=== PATIENT | female | born 1980 | race Caucasian/White ===

== ENCOUNTER 2017-10-10 15:22 | Emergency (ER) | payer OTHER ==
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
[2017-10-10 17:30] VITALS: BP 123/79
--- NOTE | 2017-10-10 17:31 | CT ---
CT facial bones Technique: Multiple axial sections through the facial bones were obtained. Reconstructed coronal and sagittal images were reviewed. Findings: Slightly comminuted and displaced fracture is noted within the lateral orbital wall on the right side. Greatest displacement is up to 2.4 mm. There is inward displacement of several small fractures by about 2 mm into the orbit. No additional fracture is seen within the facial bones. Mild mucosal thickening is seen within both maxillary sinuses. Soft tissue swelling is seen around the right periorbital region. Impression: 1. Slightly displaced fracture within the lateral orbital wall on the right side. 2. Soft tissue swelling within the right periorbital region. 3. Minimal sinus findings which are felt to be pre-existing and chronic. Diagnostic code #3
== END 2017-10-10 18:10 | disposition home or self-care (01) ==
LOC: JD.ED 15:22
DX: S02.81XA Fracture of other specified skull and facial bones, right side, initial encounter for closed fracture (principal); S70.12XA Contusion of left thigh, initial encounter; S70.11XA Contusion of right thigh, initial encounter; S05.11XA Contusion of eyeball and orbital tissues, right eye, initial encounter; S30.810A Abrasion of lower back and pelvis, initial encounter; F32.9 Major depressive disorder, single episode, unspecified; Z91.040 Latex allergy status; Z79.899 Other long term (current) drug therapy; V49.9XXA Car occupant (driver) (passenger) injured in unspecified traffic accident, initial encounter
CPT/HCPCS: 36415; 70486; 70486-26; 81003; 84703; 85025; 99284-25

== ENCOUNTER 2021-03-18 00:41 | Emergency (ER) | payer OTHER ==
[2021-03-18 00:59] VITALS: BP 95/49; PULSE 72
[2021-03-18] MEDS ORDERED: Ondansetron 4 MG/2 ML SDV IVPUSH ONE (02:13)
[2021-03-18] MEDS ORDERED: HYDROmorphone 1 MG/ML Syringe IVPUSH ONE (02:13)
[2021-03-18] MEDS ORDERED: Ondansetron 4 MG Tab.DIS PO ONE (02:22)
[2021-03-18] MEDS ORDERED: HYDROmorphone 1 MG/ML Syringe IM STA (02:22)
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
--- NOTE | 2021-03-18 08:12 | CR ---
Right ankle: 4 views of the right ankle were obtained. Comparison: No prior studies available Fracture is identified within the distal fibular diaphysis. Mild displacement is seen. Fracture is noted within the medial malleolus showing displacement. No definite posterior malleolus fracture is noted. There is some shifting of the talus in relation to the tibia compatible with mild subluxation with ligamentous injury. Diffuse soft tissue swelling is noted. Impression: 1. Distal fibular diaphyseal fracture and medial malleolus fracture with displacement and mild subluxation at the tibiotalar joint. 2. Soft tissue swelling. Diagnostic code #3
== END 2021-03-18 03:16 | disposition home or self-care (01) ==
LOC: JD.ED 00:41
DX: S82.841A Displaced bimalleolar fracture of right lower leg, initial encounter for closed fracture (principal); Z91.040 Latex allergy status; Z91.048 Other nonmedicinal substance allergy status; X58.XXXA Exposure to other specified factors, initial encounter; Y93.41 Activity, dancing; Y92.89 Other specified places as the place of occurrence of the external cause
CPT/HCPCS: 29515; 73600; 73610; 96372; 99283; A9270; J1170

== ENCOUNTER 2021-03-26 10:26 | Day surgery (SDC) | payer OTHER ==
--- NOTE | 2021-03-26 08:52 | PCM.SN.2 ---
- Free Text/Narrative Note: Anesthesia Note: Time out: 1332 Start: 1332 Stop: 1339 Procedure: Right Ankle Block for post operative pain control requested by Dr. Edwards. Chart reviewed, allergies noted, risk/benefits discussed with patient, and consent obtained. Patient placed on O2 at 2lpm nasal cannula. Monitors/alarms on, and patient positioned supine for ankle block placement. IV sedation given with versed 2mg, and fentanyl 100mcg prior to procedure. Total of 10mls: 50/50 mixture of (1%lidocaine/0.25% marcaine) Deep peroneal nerve, superficial peroneal, saphenous nerve, posterior tibial, and sural nerve all blocked with negative aspiration noted with each injection. Patient tolerated procedure well. Patient stated prior to going back to the OR that ankle pain was improving. Thank you! Nichole Stahl CRNA Time Documentation
--- NOTE | 2021-03-26 08:56 | PCM.SN.2 ---
- Free Text/Narrative Note: Right selective femoral nerve block at the adductor canal for post-procedure pain control under US guidance requested by Dr. Edwards. Time Out: 1320 Start: 1320 End: 1327 Chart reviewed. Consent signed. Questions answered. Appropriate monitors applied. Time out performed. Right mid-shaft femur identified with ultrasound, scanning medially of femur, the femoral artery in the adductor canal visualized, and the femoral nerve located laterally to the artery. The skin was prepped lateral to the ultrasound probe with chlorahexadine times two. The 21ga 4 insulated block needle was inserted under direct ultrasound guidance into the adductor canal. 20mL of 0.5% ropivacaine with 1:200,000 epinephrine was injected circumferentially around the nerve with intermittent negative aspiration noted. Patient tolerated the procedure well. Sterile technique noted along with sterile gloves, mask, and sterile probe cover. See picture on progress note and vital signs on nurses notes. Block completed in PACU. Nichole Stahl CRNA Time Documentation
[~2021-03-26 10:26] MED LIST: Bupivacaine 0.25% 10 ML SDV ONE; EPINEPHrine 1 MG/ML SDV ONE; Lactated Ringers 1,000 ML IV SCH; Lidocaine 1% 30 ML SDV ONE; Lidocaine 1%/Sod Bicarbonate in NS 8.4% 1 ML Syringe IDERM PRN; Ropivacaine 0.5% 5 MG/ML 30 ML SDV ONE; Sodium Chloride 0.9% 10 ML Syringe FLUSH PRN
[2021-03-26] MEDS ORDERED: Dexamethasone 4 MG/ML 5 ML MDV ONE (12:14)
[2021-03-26] MEDS ORDERED: Midazolam 1 MG/ML 2 ML SDV ONE ×2 (12:14→13:53)
[2021-03-26] MEDS ORDERED: Lactated Ringers 1,000 ML ONE (12:14)
[2021-03-26] MEDS ORDERED: Ondansetron 4 MG/2 ML SDV ONE (12:14)
[2021-03-26] MEDS ORDERED: fentaNYL 250 MCG/5 ML SDV ONE (12:15)
[2021-03-26] MEDS ORDERED: ceFAZolin 1 GM Vial ONE (12:15)
[2021-03-26] MEDS ORDERED: Propofol 200 MG/20 ML SDV ONE ×3 (12:15→13:55)
--- NOTE | 2021-03-26 12:57 | PCM.PREANE ---
Preanesthetic Assessment - Procedure Proposed Procedure: ORIF of Right Bimalleolar Ankle Fracture. - Anesthesia/Transfusion/Family Hx Anesthesia History: Prior Anesthesia Without Reaction Family History of Anesthesia Reaction: No Transfusion History: No Prior Transfusion(s) Intubation History: Unknown - Review of Systems General: No Symptoms Pulmonary: No Symptoms (ETOH: 5 beers per week.) Cardiovascular: No Symptoms Gastrointestinal: No Symptoms, Constipation (chronic) Neurological: No Symptoms Other: Reports: Liver Problems (elevated liver enzymes), Depression, Anxiety - Physical Assessment NPO Status Date: 03/25/21 NPO Status Time: 21:00 Vital Signs: Last Vital Signs Temp 36.9 C 03/26/21 10:30 Pulse 70 03/26/21 10:30 Resp 16 03/26/21 10:30 BP 121/76 03/26/21 10:30 Pulse Ox 96 03/26/21 10:30 Height: 1.63 m Weight: 79.2 kg ASA Class: 2 Mental Status: Alert & Oriented x3 Airway Class: Mallampati = 2 Dentition: Reports: Normal Dentition, Caries Thyro-Mental Finger Breadths: 3 Mouth Opening Finger Breadths: 3 ROM/Head Extension: Full Lungs: Clear to Auscultation, Normal Respiratory Effort Cardiovascular: Regular Rate, Regular Rhythm, No Murmurs - Lab Values: All labs reviewed and noted and within acceptable ranges to proceed with scheduled procedure. Declined HCG due to currently menstruating. - Allergies Allergies/Adverse Reactions: Allergies Allergy/AdvReac Type Severity Reaction Status Date / Time latex Allergy Severe Anaphylactic Verified 03/26/21 12:34 Shock adhesive Allergy Rash Verified 03/26/21 12:34 - Anesthesia Plan Pre-Op Medication Ordered: None, Other (Versed 2mg and Fentanyl 100mcg IV in preop for block placement.) - Acknowledgements Anesthesia Type Planned: General Anesthesia (With Right Ankle Block and Right Adductor Canal Block under US guidance for post operative pain control requested by Dr. Edwards. 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 D&C 2011 Neurological History: Reports: None Psychiatric History: Reports: Anxiety, Depression Endocrine/Metabolic History: Reports: Vitamin D Deficiency Hematologic History: Reports: None Immunologic History: Reports: None Oncologic (Cancer) History: Reports: None Dermatologic History: Reports: None - Infectious Disease History Infectious Disease History: Reports: None - Past Surgical History Head Surgeries/Procedures: Reports: None HEENT Surgical History: Reports: LASIK, Other (See Below) Other HEENT Surgeries/Procedures: Orbital fracture Cardiovascular Surgical History: Reports: None Respiratory Surgical History: Reports: None GI Surgical History: Reports: Hernia, Inguinal Other GI Surgeries/Procedures: 1981 Female Surgical History: Reports: Section, D&C Male Surgical History: Reports: None Endocrine Surgical History: Reports: None Neurological Surgical History: Reports: None Musculoskeletal Surgical History: Reports: Arthroscopic Knee, ORIF Other Musculoskeletal Surgeries/Procedures:: ankle surgery Oncologic Surgical History: Reports: None Dermatological Surgical History: Reports: None - SUBSTANCE USE Tobacco Use Status *Q: Never Tobacco User Recreational Drug Use History: No - HOME MEDS Home Medications: Home Meds Citalopram Hydrobromide [Celexa] 40 mg PO DAILY 03/24/21 [History] Aspirin [Aspirin EC] 325 mg PO BID #84 tab 03/26/21 [Rx] Hydrocodone/Acetaminophen [HYDROcodone-Acetaminophen 5-325 MG] 1 - 2 each PO Q4H PRN #30 tablet 03/26/21 [Rx] - CURRENT (IN HOUSE) MEDS Current Meds: Current Medications Lactated Ringer's (Ringers, Lactated) 1,000 mls @ 125 mls/hr IV ASDIRECTED KYRIE Stop: 03/26/21 23:00 Last Admin: 03/26/21 12:34 Dose: 125 mls/hr Documented by: Lidocaine/Sodium Bicarbonate (Lidocaine 1%/Sod Bicarbonate In Ns 8.4% 1 Ml Syringe) 0.25 ml IDERM ONETIME PRN PRN Reason: Prior to IV Start Stop: 03/26/21 18:00 Sodium Chloride (Sodium Chloride 0.9% 10 Ml Syringe) 10 ml FLUSH ASDIRECTED PRN PRN Reason: Keep Vein Open Stop: 03/26/21 18:00 Discontinued Medications Bupivacaine HCl (Bupivacaine 0.25% 10 Ml Sdv) Confirm Administered Dose 10 ml .ROUTE .STK-MED ONE Stop: 03/26/21 09:27 Cefazolin Sodium (Cefazolin 1 Gm Vial) Confirm Administered Dose 2 gm .ROUTE .STK-MED ONE Stop: 03/26/21 12:16 Dexamethasone (Dexamethasone 4 Mg/Ml 5 Ml Mdv) Confirm Administered Dose 20 mg .ROUTE .STK-MED ONE Stop: 03/26/21 12:15 Epinephrine HCl (Epinephrine 1 Mg/Ml Sdv) Confirm Administered Dose 1 mg .ROUTE .STK-MED ONE Stop: 03/26/21 09:26 Fentanyl (Fentanyl 250 Mcg/5 Ml Sdv) Confirm Administered Dose 250 mcg .ROUTE .STK-MED ONE Stop: 03/26/21 12:16 Lactated Ringer's (Ringers, Lactated) Confirm Administered Dose 1,000 mls @ as directed .ROUTE .STK-MED ONE Stop: 03/26/21 12:15 Lidocaine HCl (Lidocaine 1% 30 Ml Sdv) Confirm Administered Dose 30 ml .ROUTE .STK-MED ONE Stop: 03/26/21 09:27 Midazolam HCl (Midazolam 1 Mg/Ml 2 Ml Sdv) Confirm Administered Dose 2 mg .ROUTE .STK-MED ONE Stop: 03/26/21 12:15 Ondansetron HCl (Ondansetron 4 Mg/2 Ml Sdv) Confirm Administered Dose 4 mg .ROUTE .STK-MED ONE Stop: 03/26/21 12:15 Propofol (Propofol 200 Mg/20 Ml Sdv) Confirm Administered Dose 200 mg .ROUTE .STK-MED ONE Stop: 03/26/21 12:16 Ropivacaine (Ropivacaine 0.5% 5 Mg/Ml 30 Ml Sdv) Confirm Administered Dose 30 ml .ROUTE .STK-MED ONE Stop: 03/26/21 09:27
[2021-03-26] MEDS ORDERED: Ketamine 500 mg/10 ML MDV ONE (13:58)
[2021-03-26] MEDS ORDERED: Bupivacaine 0.25% 10 ML SDV ONE (14:06)
--- NOTE | 2021-03-26 15:22 | CR ---
Right ankle: 8 fluoroscopic spot views were obtained of the right ankle utilizing C-arm device in the operating room. Comparison: Prior right ankle study of 03/18/21. Plate and screws are noted fixing previous lateral malleolus fracture. Study also shows reduction and fixation with 2 screws affixing the medial malleolus fracture. Ankle mortise is symmetric. Fluoroscopy time given is 27.1 seconds. Impression: 1. Procedural study as noted above. Diagnostic code #2
[2021-03-26] MEDS ORDERED: fentaNYL 100 MCG/2 ML SDV IVPUSH PRN (15:27)
[2021-03-26] MEDS ORDERED: Ondansetron 4 MG/2 ML SDV IVPUSH PRN (15:27)
--- NOTE | 2021-03-26 15:28 | PCM.POSTAN ---
POST ANESTHESIA ASSESSMENT - MENTAL STATUS Mental Status: Alert, Oriented - VITAL SIGNS Vital Signs: Last Vital Signs Temp 36.2 C 03/26/21 15:22 Pulse 92 03/26/21 15:22 Resp 12 03/26/21 15:22 BP 96/82 03/26/21 15:22 Pulse Ox 99 03/26/21 15:22 - RESPIRATORY Respiratory Status: Respiratory Rate WNL, Airway Patent, O2 Saturation Stable - CARDIOVASCULAR CV Status: Pulse Rate WNL, Blood Pressure Stable - GASTROINTESTINAL GI Status: No Symptoms - PAIN Pain Score: 8 - POST OP HYDRATION Hydration Status: Adequate & Stable
[2021-03-26] MEDS: HYDROmorphone 0.5 MG/0.5 ML Syringe IVPUSH PRN ×2 (15:31→15:54)
[2021-03-26] MEDS ORDERED: fentaNYL 100 MCG/2 ML SDV IVPUSH STA (15:35)
[2021-03-26] MEDS ORDERED: HYDROmorphone 1 MG/ML Syringe IVPUSH STA (15:50)
[2021-03-26] MEDS ORDERED: Ketorolac 30 MG/ML SDV IVPUSH ONE (16:00)
--- NOTE | 2021-03-26 16:22 | PCM48HPAN ---
Post Anesthesia Note - EVALUATION WITHIN 48HRS OF ANESTHETIC Vital Signs in Normal Range: Yes Patient Participated in Evaluation: Yes Respiratory Function Stable: Yes Airway Patent: Yes Cardiovascular Function Stable: Yes Hydration Status Stable: Yes Pain Control Satisfactory: No (additional pain medication orders given to PACU nurse. ) Nausea and Vomiting Control Satisfactory: Yes Mental Status Recovered: Yes Vital Signs: Last Vital Signs Temp 36.7 C 03/26/21 16:15 Pulse 80 03/26/21 16:15 Resp 11 L 03/26/21 16:15 BP 105/56 L 03/26/21 16:15 Pulse Ox 98 03/26/21 16:15 - COMMENTS/OBSERVATIONS Free Text/Narrative:: Patient resting quietly, with pain improvement noted after additional dilaudid orders.
[2021-03-26 19:24] VITALS: BP 124/86; PULSE 77
--- NOTE | 2021-04-03 06:53 | PCM.OPNOTE ---
- General Post-Op/Procedure Note Date of Surgery/Procedure: 03/26/21 Operative Procedure(s): open reduction internal fixation of right bimalleolar ankle fracture Pre Op Diagnosis: right bimalleolar ankle fracture Post-Op Diagnosis: Same Anesthesia Technique: General LMA, Local, Regional Block Primary Surgeon: Kevin Edwards Anesthesia Provider: Yeni Gannon Addressing Machine Operator: Astrid Zambrano EBL in mLs: 10 Complications: None Condition: Good
--- NOTE | 2021-04-05 12:14 | OR ---
DATE OF OPERATION: 03/26/2021 SURGEON: Kevin Edwards MD OPERATION PERFORMED: Open reduction and internal fixation of right bimalleolar ankle fracture. PREOPERATIVE DIAGNOSIS: Right bimalleolar ankle fracture. POSTOPERATIVE DIAGNOSIS: Right bimalleolar ankle fracture. ANESTHESIA: General LMA with local and regional ankle block. ANESTHESIA PROVIDER: Yeni Gannon. DOMESTIC TECHNICIAN: Astrid Zambrano PA-C. ESTIMATED BLOOD LOSS: 10 mL. COMPLICATIONS: None. CONDITION: Stable. DESCRIPTION OF PROCEDURE: The patient was identified in the preop holding area. Proper site was marked and identified by the surgeon. The patient was taken back to the operating theater where after adequate anesthesia, nonsterile tourniquet was applied to the right lower extremity. Right lower extremity was then sterilely prepped and draped in the usual sterile fashion. OR time-out was performed. The patient received 2 g IV Ancef. Right lower extremity was exsanguinated. Tourniquet was insufflated to 250 mmHg. A standard lateral incision was made over the fibula. This was taken down to the fracture site. The fracture site was curetted and rongeured all fracture hematoma. [id number] reduction clamps were used for reduction of the fibula fracture and a 3.5 lag screw was then placed from anterior to posterior and was found to have adequate compression and anatomic reduction of the fracture site. A [place] distal fibular locking plate was then placed. Six cortices were then obtained both proximally and distally from the fracture site leaving room for syndesmotic screws if needed after medial fixation. Attention was turned to the medial side. Medial incision was made and care was taken to protect the neurovascular bundle which was retracted anteriorly. At this time with the use of scalpel as well as the curette, all periosteum as well as fracture hematoma was irrigated and removed from the medial side. [id number] reduction clamp was then used for direct visualization reduction of the medial malleolus. Two guide pins were then placed for two 4-0 cannulated screws. Drill was then used and two 4-0 cannulated screws were placed. Findings have anatomic reduction and good stability of the medial malleolus. Stress view was then taken. There was no medial clear space widening. At this time, adequate saline was irrigated through the both knee in the lateral side. 2-0 Vicryl was used subcutaneously and lexie were used for closure of skin. The patient tolerated the procedure well and was placed in a sterile soft dressing and a posterior slab splint. CARSON /[id number]
== END 2021-03-26 19:20 | disposition home or self-care (01) ==
LOC: JD.SDS 10:26
PROVIDERS: ATTEND Orthopaedic Surgery
DX: S82.841A Displaced bimalleolar fracture of right lower leg, initial encounter for closed fracture (principal); F41.9 Anxiety disorder, unspecified; F32.9 Major depressive disorder, single episode, unspecified; E55.9 Vitamin D deficiency, unspecified; E61.1 Iron deficiency; G89.18 Other acute postprocedural pain; Z91.040 Latex allergy status; Z79.899 Other long term (current) drug therapy; Z98.890 Other specified postprocedural states
CPT/HCPCS: 27814; 76000; C1713; C1776; J0171; J0690; J1100; J1170; J1885; J2250; J2405; J2704; J2795; J3010; J3490; J7120; 01480; 64450; 76942